=== PATIENT | female | born 1975 | race Two or more races ===

== ENCOUNTER 2024-12-21 07:43 | Day surgery (SDC) | payer OTHER ==
--- NOTE | 2024-12-19 15:02 | DVHHP ---
ADMIT DATE: 12/21/2024 CHIEF COMPLAINT: Abnormal uterine bleeding. HISTORY OF PRESENT ILLNESS: The patient is a 49-year-old 5, para 5, admitted for D and C, hysteroscopy and endometrial ablation. The patient's ultrasound showed uterus to be 10.4 x 6 x 7. Some fibroid was noted. The patient wanted to have the endometrial biopsy under anesthesia. She could not tolerate it in the office. Risks, complications, failure rate, possibility of malignancy were discussed with the patient. Need for further surgery discussed with the patient since the patient did not want to have it done in the office, rather wanted it under anesthesia. PAST MEDICAL HISTORY: None. PAST SURGICAL HISTORY: Right salpingectomy for ectopic , cholecystectomy, tubal ligation, abdominoplasty. SOCIAL HISTORY: None. FAMILY HISTORY: None. OBSTETRIC AND GYNECOLOGIC HISTORY: Five normal vaginal deliveries. REVIEW OF SYSTEMS: Consistent with HPI. PHYSICAL EXAMINATION: VITAL SIGNS: Stable, afebrile. HEENT: Within normal limits. CARDIOVASCULAR: Regular rate and rhythm. LUNGS: Clear to auscultation. BREASTS: Symmetrical, no masses. ABDOMEN: Soft, non-gravid, nontender. PELVIC: External genitalia within normal limits. Vagina normal. Cervix grossly normal appearing. Uterus 7-week size. Adnexa nonpalpable. EXTREMITIES: No clubbing, cyanosis, or edema. IMPRESSION: Abnormal uterine bleeding. PLAN: D and C, hysteroscopy, endometrial ablation. Informed consent obtained. Risks and complications of surgery including infection, bleeding, perforation of uterus, and risks of anesthesia discussed with the patient. Options reviewed. All questions answered. The patient fully understands. She wishes to proceed with planned procedure. Failure rate with this procedure discussed with the patient. DO JUANITA Mills/MILTON/KAYLEY TID: [id number] RECEIPT: [id number]
[~2024-12-21] VITALS: Ht 149.9 cm; Wt 66.7 kg
[~2024-12-21 07:43] MED LIST: ATOR20TA PO; CHOL20007 PO; ZOLP10TA6 PO
[2024-12-21] MEDS ORDERED: HYDR-4072 PO (07:53)
[2024-12-21] MEDS ORDERED: ZOFR4T PO (07:53)
[2024-12-21] MEDS ORDERED: IBUP-1456 PO (07:53)
[2024-12-21] MEDS ORDERED: LACTATED RINGER'S 1,000 ML IV SCH (08:00)
[2024-12-21] MEDS ORDERED: HYDROmorphone HCL 2 MG/ML VL/or syr ONE (08:51)
[2024-12-21] MEDS ORDERED: PROPOFOL 10 MG/ML 20 ML IV ONE (08:51)
[2024-12-21] MEDS ORDERED: fentaNYL CITRATE 100 MCG/2 ML VL ONE (08:51)
[2024-12-21] MEDS: ceFAZolin 2 GM/D5W50ml 50 ML IV ONE (08:58)
[2024-12-21] MEDS ORDERED: ONDANSETRON HCL 4 MG/2 ML VIAL ONE (09:03)
[2024-12-21] MEDS ORDERED: MEPERIDINE HCL (25 MG/ML) 1ML VIAL IV PRN (09:30)
[2024-12-21] MEDS ORDERED: HYDROmorphone HCL 2 MG/ML VL/or syr IV PRN (09:30)
[2024-12-21] MEDS ORDERED: ONDANSETRON HCL 4 MG/2 ML VIAL IV ONE (09:30)
[2024-12-21] MEDS ORDERED: ACETAMINOPHEN IV 1000 MG/100ML (10MG/ML) IV PRN (09:30)
[2024-12-21 09:41] VITALS: PULSE 118; RESP 20; TEMP 98.1; O2SAT 95
[2024-12-21] MEDS: ONDANSETRON HCL 4 MG/2 ML VIAL IV PRN (09:49)
[2024-12-21] MEDS: METOCLOPRAMIDE HCL 5MG/ml INJ 2ml VIAL IV ONE (10:20)
[2024-12-21 10:45] VITALS: BP 118/65; PULSE 96; RESP 14; O2SAT 98
--- NOTE | 2024-12-21 15:19 | DVHOP2 ---
Operative Report DATE OF OPERATION: 12/21/24 PREOPERATIVE DIAGNOSES: Abnormal uterine bleeding. POSTOPERATIVE DIAGNOSES: Abnormal uterine bleeding. SURGEON: Nohemy Obregon D.O. ANESTHESIOLOGIST: DRAKE TYPE OF ANESTHESIA : MAC. CONSENT: The patient was informed of the risks and benefits of the procedure. The patient was informed of the risks and benefits of the procedure. These include but are not limited to , complications of anesthesia, postoperative infection, incomplete relief of symptoms, recurrence of symptoms, damage to blood vessels, nerves and tendons, deep venous thrombosis, pulmonary embolism and possible need for repeat surgery in the future. FINDINGS: Cervix is normal. Uterus is 9 weeks size. Adnexa is nonpalpable. Hysteroscopy examination revealed no evidence of polyps or myomas. SPECIMEN: [facility] COMPLICATIONS: None BLOOD PRODUCTS USED: None PROCEDURES: Dilation and curettage, hysteroscopy, and endometrial ablation. PROCEDURE IN DETAIL: The patient was taken to the operating room, where he was placed under MAC anesthesia. She was then prepped and draped in the usual ster ile manner in dorsal lithotomy position. Bladder was emptied using a straight catheter. Examination under anesthesia revealed the above findings. A weighted speculum was placed in the vagina. Anterior lip of the cervix was grasped using single tooth tenaculum. Cervix was dilated. Uterus was sounded to 9 cm. Hysteroscope was advanced. Survey of uterine cavity revealed no evidence of polyp or myoma. Hysteroscope was removed. Endometrial carotene was performed. Endometrial ablation procedure was then performed successfully. Post ablation hysteroscopic findings was consistent with excellent ablation of the entire cavity. No bleeding was noted. All the instruments were removed from the vagina and cervix. Patient tolerated procedure well. She was then taken to the recovery room in stable condition. CONDITION: Stable ESTIMATED BLOOD LOSS: 50 mL Visit Coding OBGYN Date of Service: Dec 21, 2024 Billing Provider: NOHEMY OBREGON DO SCHEDULE MANAGER Common Visit Codes: 97571-[id number] OBS CARE (HIGH) SCHEDULE MANAGER Procedure Codes: [id number], SURG: W/EA NOHEMY OBRGEON DO Dec 21, 2024 15:19
--- NOTE | 2024-12-21 15:21 | DVHDS2 ---
Physician Discharge Progress N Final Diagnosis: AUB Operations or Procedures: Operations or Procedures D AND C,HYSTEROSCOPY,ENDOMETRIAL ABLATION Condition on Discharge: Good Disposition: Home Discharge Instructions: Diet: Regular Activity: Light activity Follow Up/Referral: 9:30 AM Medications: CHELSEA MARIN Follow Up Care: Specialist: 1W Discharge Statement: "Patient was advised to return to the ER or call 911 if any headaches, dizziness, shortness of breath, chest pain, abdominal pain, bleeding, fevers, or worsening of medical condition. Patient was counseled about treatment plan, medications, possible side effects, patientverbalized understanding. All questions were answered to the best of my ability. This discharge took greater then 30 minutes in planning, reviewing documentation, counseling the patient, and discussing with other team members." Visit Coding OBGYN Date of Service: Dec 21, 2024 Billing Provider: NOHEMY ANDREW DO LOCKSTITCH SLEEVE MAKER Common Visit Codes: [id number] OBS CARE (HIGH), 87635-CLB/OBS DISCH DAY >30MIN NOHEMY ANDREW DO Dec 21, 2024 15:21
--- NOTE | 2024-12-21 15:21 | POSTOP ---
Post-Operative Note Post-Operative Note Preop Diagnosis AUB Postop Diagnosis: AUB Operation performed D AND C,HYSTEROSCOPY,ENDOMETRIAL ABLATION Specimen [facility] Anesthesia: Mac Anesthesiologist: NUYGEN Blood Loss(fluid mgmt) 20ML Surgeon Nohemy Obregon Implant NA Complications & Mgmt NONE Date 12/21/24 Time 15:19 Visit Coding OBGYN Date of Service: Dec 21, 2024 Billing Provider: NOHEMY OBREGON DO RETORT UNLOADER Common Visit Codes: 86383-[id number] OBS CARE (HIGH) RETORT UNLOADER Procedure Codes: [id number], SURG: W/EA NOHMEY OBREGON DO Dec 21, 2024 15:21
== END 2024-12-21 10:55 | disposition home or self-care (01) ==
LOC: SUR 07:43
PROVIDERS: ATTEND Obstetrics & Gynecology
DX: N93.9 Abnormal uterine and vaginal bleeding, unspecified (principal); E78.00 Pure hypercholesterolemia, unspecified; Z90.49 Acquired absence of other specified parts of digestive tract; Z90.79 Acquired absence of other genital organ(s); Z98.51 Tubal ligation status; Z79.899 Other long term (current) drug therapy; Z79.01 Long term (current) use of anticoagulants
CPT/HCPCS: 58563; 86850; 86900; 86901; 88305; J0690; J1100; J1171; J2405; J2704; J2765; J3010; J0131